=== PATIENT | female | born 1975 | race Caucasian/White ===

== ENCOUNTER 2016-08-20 18:50 | Emergency (ER) | payer MEDICAID ==
[~2016-08-20] VITALS: Ht 175.3 cm; Wt 76.2 kg
[2016-08-20] MEDS ORDERED: NKM (19:35)
[2016-08-20] MEDS ORDERED: CORTIZONE-1028 G1 TP (20:02)
[2016-08-20 20:07] VITALS: BP 121/75
[2016-08-20 20:09] VITALS: BP 121/75
--- NOTE | 2016-08-20 20:55 | Emergency Room Report ---
History of Present Illness General Chief Complaint: General Complaint Present Illness HPI The patient is a 40-year-old female presenting for possible insect bites. The patient states that she has had insects on her body for one year. The patient states she has been treated for scabies which has not helped. The patient went to another emergency department this morning for the same symptoms and was and Benadryl which did not help. The patient states they're bugs crawling out of her skin. The patient denies any pain. Pt does admit to itching. Pt denies any other symptoms including N, V, F, chills Allergies: Coded Allergies: SULFA (SULFONAMIDE ANTIBIOTICS) (Verified Allergy, Unknown, 08/20/16) Patient History Past Medical History: see triage record, psych hx Pertinent Family History: none Last Menstrual Period: last month Reviewed Nursing Documentation: PMH: Agreed, PSxH: Agreed Review of Systems All Other Systems: negative except mentioned in HPI Physical Exam Vital Signs Date Time Temp Pulse Resp B/P Pulse Ox O2 Delivery O2 Flow Rate FiO2 08/20/16 19:29 97.9 92 16 128/79 97 Room Air Sp02 EP Interpretation: reviewed, normal General Appearance: no apparent distress, alert, GCS 15, non-toxic Head: normocephalic, atraumatic Eyes: bilateral eye PERRL, bilateral eye normal inspection ENT: hearing grossly normal, normal pharynx, no angioedema, normal voice Respiratory: chest non-tender, lungs clear, normal breath sounds, speaking full sentences Neurologic: alert, oriented x3, responsive, motor strength/tone normal, sensory intact, normal gait, speech normal Psychiatric: anxious Skin: no rash, warm/dry, well hydrated, normal turgor, other - There are few scattered < 1cm lesions with excoriation grover of arms and legs. Lymphatic: no adenopathy Medical Decision Making PA Attestation Dr. Schaffer is my supervising physician. Patient management was discussed with my supervising physician Diagnostic Impression: Primary Impression: Insect bite ER Course The patient is a 40-year-old female presenting for possible insect bites Ddx considered include but not limited to insect bite, scabies, contact dermatitis, eczema, cellulitis PE: vitals WNL. NAD There are few scattered < 1cm lesions with excoriation grover of arms and legs. No burrowing seen. No lesions between web spaces. No scaling No surrounding erythema The patient is discharged and given a prescription for hydrocortisone cream. ER precautions are given Last Vital Signs Date Time Temp Pulse Resp B/P Pulse Ox O2 Delivery O2 Flow Rate FiO2 08/20/16 20:09 98.1 90 18 121/75 98 Room Air Status: improved Disposition: HOME, SELF-CARE Condition: Improved Scripts Hydrocortisone (CORTIZONE-10) 28 Gm Cream..g. 28 GM TP Q8HR, #28 GM Prov: MIKE ALVARADO 08/20/16 Referrals: NOT CHOSEN [facility]/,REFERRING (PCP) Patient Instructions: Insect Bite Additional Instructions: I discussed my findings with the patient. All questions and concerns have been answered. Treatment and medication compliance have been addressed. I advised the patient that they need to follow up with PMD in 3-5 days. Return to ED if symptoms worsen, new symptoms arise, or if needed for any reason. Patient verbalized understanding of discharge instructions. MIKE ALVARADO Aug 20, 2016 20:55
== END 2016-08-20 20:09 | disposition home or self-care (01) ==
LOC: EMR 20:01
DX: S40.869A Insect bite (nonvenomous) of unspecified upper arm, initial encounter (principal); S80.869A Insect bite (nonvenomous), unspecified lower leg, initial encounter; W57.XXXA Bitten or stung by nonvenomous insect and other nonvenomous arthropods, initial encounter; Y93.9 Activity, unspecified; Y92.9 Unspecified place or not applicable; Z88.2 Allergy status to sulfonamides
CPT/HCPCS: 99283

== ENCOUNTER 2016-08-21 22:32 | Emergency (ER) | payer MEDICAID ==
[~2016-08-21] VITALS: Ht 175.3 cm; Wt 76.2 kg
[~2016-08-21 22:32] MED LIST: CORTIZONE-1028 G1 TP; NKM
[2016-08-21 23:15] VITALS: BP 140/68
[2016-08-21 23:30] VITALS: BP 140/68
--- NOTE | 2016-08-22 04:40 | Emergency Room Report ---
History of Present Illness General Chief Complaint: General Complaint Source: Patient, Medical Record Present Illness Allergies: Coded Allergies: SULFA (SULFONAMIDE ANTIBIOTICS) (Verified Allergy, Unknown, 08/20/16) Patient History Now: No Physical Exam Vital Signs Date Time Temp Pulse Resp B/P Pulse Ox O2 Delivery O2 Flow Rate FiO2 08/21/16 22:58 98.2 95 16 146/65 99 08/21/16 23:15 Room Air Medical Decision Making Diagnostic Impression: Primary Impression: Encounter for generalized patient complaints ER Course patient left prior to MD evaluation Last Vital Signs Date Time Temp Pulse Resp B/P Pulse Ox O2 Delivery O2 Flow Rate FiO2 08/21/16 23:30 98.2 78 16 140/68 100 Room Air Status: unchanged Disposition: LEFT W/OUT BEING SEEN Condition: Stable Referrals: NOT CHOSEN [facility]/,REFERRING (PCP) DESTINY BARNES M.D. Aug 22, 2016 04:40
== END 2016-08-21 23:15 | disposition left against medical advice (07) ==
LOC: EMR 23:15
DX: Z53.21 Procedure and treatment not carried out due to patient leaving prior to being seen by health care provider (principal); Z88.2 Allergy status to sulfonamides
CPT/HCPCS: 99281